=== PATIENT | female | born 1990 | race African-American/Black ===

== ENCOUNTER 2016-07-24 04:12 | Emergency (ER) | payer OTHER ==
[~2016-07-24] VITALS: Ht 172.7 cm; Wt 131.7 kg
[~2016-07-24 04:12] MED LIST: ALPRAZOLAM0.25 M2 PO; ELAVIL25 MG PO; FLEXERIL10 MG PO; LIDODERM 5% P1 PATCH TD; MOBIC15 MG PO; MOTRIN800 MG PO; NAPROSYN500 MG PO; PEN-VEE K,VEET500 MG PO; PERCOCET 10/1 TABLET PO; PERCOCET 5/31 TABLET PO; PHENTERMINE H37.5 MG PO; PREDNISONE20 MG PO; ROBAXIN750 MG PO; TORADOL10 MG PO; ULTRAM50 MG PO; VITAMIN D1000 UNIT PO; ZOFRAN ODT4 MG PO
[2016-07-24 05:09] LABS: HEMATOCRIT 38.1 % (36.0-46.0); MCH 28.1 PG (29.0-34.0); MCHC 32.3 G/DL (30.0-36.0); MEAN PLAT.VOLUME 10.2 uM^3 (9.5-12.4); PLATELET COUNT 193 K/uL (156-360); RBC DIS.WIDTH-CV 13.1 % (11.8-14.6); RBC DIS.WIDTH-SD 41.3 % (39-53); RED BLOOD COUNT 4.38 M/uL (3.80-5.20); WHITE BLOOD COUNT 9.2 K/uL (4.1-10.2)
[2016-07-24 05:21] LABS: CHLORIDE 106 mEq/L (99-109); POTASSIUM 3.6 mEq/L (3.7-5.4); SODIUM 136 mEq/L (136-147)
[2016-07-24 05:23] LABS: GLUCOSE 93 mg/dL (70-99)
[2016-07-24 05:25] LABS: ANION GAP 7 MEQ/L (2-14); TOTAL BILIRUBIN 0.3 mg/dL (0.0-1.0)
[2016-07-24 05:27] LABS: ALKALINE PHOSPHATASE 62 IU/L (3-129); GFR ESTIMATE (CALCULATED) > 59 mL/min/
[2016-07-24 05:28] LABS: UREA NITROGEN (BUN) 14 mg/dL (9-23)
[2016-07-24 05:30] LABS: LIPASE 10 U/L (1.0-51.0)
[2016-07-24 05:41] LABS: QUANTITATIVE HCG < 4.0 MIU/ML
[2016-07-24 05:45] LABS: ADD MIUA? YES; BILIRUBIN NEGATIVE; BLOOD LARGE; COLOR AMBER ((YELLOW)); GLUCOSE (STRIP) NEGATIVE; KETONES NEGATIVE; LEUKOCYTES NEGATIVE; NITRITE NEGATIVE; PROTEIN (STRIP) 100; SPECIFIC GRAVITY 1.035 (1.000-1.030)
[2016-07-24 06:00] LABS: BACTERIA RARE /HPF; EPITHELIAL CELLS RARE /HPF; MUCUS 1+ /LPF; RED BLOOD CELLS TNTC /HPF (0-5); UCUL ADDED? NO; WHITE BLOOD CELLS 0-5 /HPF (0-5)
[2016-07-24] MEDS ORDERED: NORCO 5/3251 TABLET PO (06:38)
[2016-07-24] MEDS ORDERED: ZOFRAN8 MG PO (06:38)
[2016-07-24 06:52] VITALS: BP 149/87
== END 2016-07-24 06:54 | disposition home or self-care (01) ==
LOC: EME 04:12
PROVIDERS: Emergency Medicine
DX: R10.32 Left lower quadrant pain (principal); N94.6 Dysmenorrhea, unspecified
CPT/HCPCS: 74177; 80053; 81003; 83690; 84702; 85027; 99281; 99285; J1885; J2405; J7030

== ENCOUNTER 2016-12-16 14:57 | Emergency (ER) | payer OTHER ==
[~2016-12-16] VITALS: Ht 172.7 cm; Wt 129.5 kg
[~2016-12-16 14:57] MED LIST changes: +NORCO 5/3251 TABLET PO; +ZOFRAN8 MG PO
[2016-12-16] MEDS ORDERED: NAPROSYN500 MG PO (17:10)
[2016-12-16] MEDS ORDERED: FLEXERIL10 MG PO (17:10)
[2016-12-16 17:46] VITALS: BP 124/87
== END 2016-12-16 17:47 | disposition home or self-care (01) ==
LOC: EME 14:57
DX: R07.9 Chest pain, unspecified (principal); V48.6XXA Car passenger injured in noncollision transport accident in traffic accident, initial encounter; Y92.410 Unspecified street and highway as the place of occurrence of the external cause; F17.200 Nicotine dependence, unspecified, uncomplicated
CPT/HCPCS: 71020; 99281; 99282